=== PATIENT | female | born 1970 | race Caucasian/White ===

== ENCOUNTER 2016-12-17 11:44 | Emergency (ER) | payer MEDICARE, MEDICAID ==
[~2016-12-17] VITALS: Ht 175.3 cm; Wt 120.0 kg
[~2016-12-17 11:44] MED LIST: CALC500T47; CYCL10TA50; LEVO100T8; LORA10CA; POTA25TA3 PO; QUET400T6; RANI150C; TOPI100T94; ZIPR80CA3
[2016-12-17 12:30] VITALS: BP 134/88
[2016-12-17 12:30] LABS: HEMOGLOBIN 14.6 g/dL (11.7-16.4)
[2016-12-17 12:30] LABS: PATH.CAST-FLAG NOT PRESENT; SPERM-FLAG NOT PRESENT; SRC-FLAG NOT PRESENT; XTAL-FLAG NOT PRESENT; YLC-FLAG NOT PRESENT
[2016-12-17 12:39] LABS: ASPARTATE AMINO TRANSFERASE 28 U/L (15-37); BLOOD UREA NITROGEN 33 mg/dL (7-18)
== END 2016-12-17 14:53 | disposition home or self-care (01) ==
LOC: ED 14:00
DX: F60.7 Dependent personality disorder (principal); Z79.899 Other long term (current) drug therapy
CPT/HCPCS: 36415; 80053; 81001; 82330; 83690; 84703; 85025; 87086; 99284